=== PATIENT | male | born 1935 | race African-American/Black ===

== ENCOUNTER 2017-10-29 14:45 | Outpatient (RCR) | payer MEDICARE ==
[~2017-10-29 14:45] MED LIST: ALLOPURINOL100 M1 ORAL; ATENOLOL50 MG ORAL; CATAPRES0.3 MG ORAL; COUMADIN3 MG ORAL; FUROSEMIDE40 MG ORAL; ISOSORBIDE1 G1; JANUVIA25 MG ORAL; LISINOPRIL20 MG ORAL; LISINOPRIL5 MG ORAL; METFORMIN HCL850 M1 ORAL; NIACIN50 MG PO; NOVOLOG100 UNITS1 SUBQ; [UNRECOGNIZED DRUG - OTHER] PO
== END 2017-11-17 | disposition home or self-care (01) ==
LOC: WCC 14:45
DX: I70.235 Atherosclerosis of native arteries of right leg with ulceration of other part of foot (principal); T86.821 Skin graft (allograft) (autograft) failure; E11.42 Type 2 diabetes mellitus with diabetic polyneuropathy; E11.621 Type 2 diabetes mellitus with foot ulcer; E08.52 Diabetes mellitus due to underlying condition with diabetic peripheral angiopathy with gangrene; N18.6 End stage renal disease; Z89.421 Acquired absence of other right toe(s); Z87.891 Personal history of nicotine dependence; Z83.3 Family history of diabetes mellitus; Z82.49 Family history of ischemic heart disease and other diseases of the circulatory system; Z82.3 Family history of stroke; I12.0 Hypertensive chronic kidney disease with stage 5 chronic kidney disease or end stage renal disease; Z95.0 Presence of cardiac pacemaker; Z79.82 Long term (current) use of aspirin
CPT/HCPCS: G0463